=== PATIENT | female | born 1995 | race Caucasian/White ===

== ENCOUNTER → 2024-02-25 16:34 | Outpatient (REF) | payer BC, SELFPAY | LOC: WDC 16:34 | PROVIDERS: ATTENDING PHYSICIAN Obstetrics & Gynecology | DX: Z12.31 Encounter for screening mammogram for malignant neoplasm of breast (principal); Z80.3 Family history of malignant neoplasm of breast | CPT/HCPCS: 77063; 77067 ==

== ENCOUNTER → 2024-07-04 11:01 | Outpatient (REF) | payer BC, SELFPAY | LOC: WDC 11:01 | PROVIDERS: ATTENDING PHYSICIAN Obstetrics & Gynecology | DX: R92.2 Inconclusive mammogram (principal); Z80.3 Family history of malignant neoplasm of breast | CPT/HCPCS: 76641 ==

== ENCOUNTER → 2024-09-23 14:55 | Outpatient (REF) | payer OTHER, SELFPAY | LOC: HWRCS 14:55 | PROVIDERS: ATTENDING PHYSICIAN Internal Medicine Cardiovascular Disease; FAMILY PHYSICIAN Physician Assistant | DX: R00.2 Palpitations (principal); R42 Dizziness and giddiness | CPT/HCPCS: 93306 ==

== ENCOUNTER → 2024-10-05 07:40 | Outpatient (REF) | payer OTHER, SELFPAY | LOC: PAVMRI 07:40 | PROVIDERS: ATTENDING PHYSICIAN Nurse Practitioner Family; FAMILY PHYSICIAN Family Medicine | DX: R41.89 Other symptoms and signs involving cognitive functions and awareness (principal); R42 Dizziness and giddiness; M54.2 Cervicalgia | CPT/HCPCS: 70553; A9575 ==

== ENCOUNTER → 2025-01-25 08:26 | Outpatient (REF) | payer OTHER, SELFPAY | LOC: WDC 08:26 | PROVIDERS: ATTENDING PHYSICIAN Obstetrics & Gynecology; FAMILY PHYSICIAN Nurse Practitioner Family | DX: R92.8 Other abnormal and inconclusive findings on diagnostic imaging of breast (principal) | CPT/HCPCS: 76642 ==

== ENCOUNTER 2025-01-26 08:55 | Emergency (ER) | payer OTHER, SELFPAY ==
[2025-01-26 08:57] VITALS: BP 139/96
[2025-01-26 09:11] VITALS: BMI 24.9
[2025-01-26] MEDS: VALIUM 5 MG PO (09:24)
[2025-01-26] MEDS: TORADOL 30 MG IM (09:24)
--- NOTE | 2025-01-26 10:00 | ED.GENMED ---
History of Present Illness
General
Chief Complaint: Back Pain
Time Seen by Provider: 01/26/25 09:09
History of Present Illness
History of Present Illness:
29-year-old female presents for evaluation of low back pain that occurred while attempting to lift. Pain is worsened since that time. She is able to ambulate with discomfort. Denies any lower extremity paresthesias or radiculopathy. No loss
of bladder or bowel function.
Past History
Past History
ED Past Medical History: Psychiatric (Anxiety)
ED Past Surgical History: None
Social History
Tobacco: Non-smoker
Review of Systems
Review of Systems
Allergies reviewed?: Yes
All Other Systems: ROS reviewed and negative except as documented in HPI and ROS
Phy Exam
Physical Exam
Physical Exam:
GEN: Well appearing, NAD, WDWN
HEENT: Oral mucosa moist, no scleral icterus
Cardiac: Regular rate
Lung: No respiratory distress, no tachypnea
MSK: No gross deformity or injuries. No reproducible tenderness to the midline lumbar spine or paraspinous musculature however paraspinous spasm is noted. Bilateral lower extremity range of motion is normal
Skin: Good color, no pallor or jaundice, no rashes
Neuro: AO x3, moves all extremities freely, bilateral lower extremity strength is normal in all tomas and patellar reflexes are 2+ bilaterally
Psych: Calm, cooperative
Course
Orders/Labs/Results
Orders:
Orders
01/26/25 09:15
Diazepam [Valium] 5 mg PO NOW STA
Ketorolac [Toradol] 30 mg IM NOW STA
Vital Signs
Initial and Last Documented VS:
Initial Vital Signs
Temp Pulse Resp BP Pulse Ox
98.7 F 83 16 139/96 100
01/26/25 08:57 01/26/25 08:57 01/26/25 08:57 01/26/25 08:57 01/26/25 08:57
Last Documented Vital Signs
Temp Pulse Resp BP Pulse Ox
98.7 F 68 16 117/78 100
01/26/25 08:57 01/26/25 10:06 01/26/25 10:06 01/26/25 10:06 01/26/25 08:57
MDM/Problems Addressed
MDM/Problems Addressed:
No indication for imaging for nontraumatic back pain without radiculopathy. Discussed supportive care
*Critical Care Note
Total Time (30-74mins, 75-104mins- exclusive of procedures): Not Applicable
ED Attending Note
-
Portions of this chart may have been created with voice recognition software.� Occasional wrong word or��sound alike� substitutions may have occurred due to the inherent limitations of voice recognition software.
Discharge Plan
Departure
Patient Disposition: Home (Routine Discharge)
Date of Disposition: 01/26/25
Time of Disposition: 10:01
Patient with high blood pressure during this ER visit?: No
Discharge Problem:
Lumbar spine strain
Instructions: Low Back Pain (DC)
Prescriptions:
New
celecoxib [Celebrex] 200 mg capsule
200 mg PO BID Qty: 20 0RF
methocarbamol 750 mg tablet
750 - 1,500 mg PO Q8H PRN (Reason: pain) Qty: 20 0RF
Referrals:
Ema Marion CRNP [Family Provider] -
Activity Restrictions/Additional Instructions:
Gentle stretches each day
Alternate heat and ice
Expect to be very stiff/sore in the mornings, this should improve as you are up and moving throughout the day
Consider physical therapy or chiropractic treatments if symptoms do not improve in 3-5 days
Interventions
Interventions:
*Risk Screen - Suicide Last Done: 01/26/25 08:57
*General Assessment Last Done: 01/26/25 08:57
*Neglect/Abuse Screening Last Done: 01/26/25 08:57
*ED- Fall Risk Assessment Last Done: 01/26/25 09:10
*ED COVID-19 Vaccine History Last Done: 01/26/25 08:57
*Nursing Disposition Last Done: 01/26/25 10:21
ED-Musculoskeletal Assessment Last Done: 01/26/25 09:11
Discharge Date and Time
Discharge Date/Time: 01/26/25 10:21
Print Language: [place]
[2025-01-26 10:06] VITALS: BP 117/78
== END 2025-01-26 10:21 | disposition home or self-care (01) ==
LOC: EMR 08:55
PROVIDERS: EMERGENCY PHYSICIAN Emergency Medicine; FAMILY PHYSICIAN Nurse Practitioner Family
DX: S39.012A Strain of muscle, fascia and tendon of lower back, initial encounter (principal); X50.9XXA Other and unspecified overexertion or strenuous movements or postures, initial encounter; F41.9 Anxiety disorder, unspecified
CPT/HCPCS: 99282; 96372

== ENCOUNTER → 2025-07-05 08:01 | Outpatient (REF) | payer OTHER, SELFPAY | LOC: WDC 08:01 | PROVIDERS: ATTENDING PHYSICIAN Obstetrics & Gynecology | DX: N60.19 Diffuse cystic mastopathy of unspecified breast (principal) | CPT/HCPCS: 76641 ==

== ENCOUNTER 2025-08-01 11:10 | Emergency (ER) | payer OTHER, SELFPAY ==
[2025-08-01 11:16] VITALS: BP 149/96
[2025-08-01 12:35] VITALS: BP 140/90
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
[2025-08-01 13:00] VITALS: BP 136/91
[2025-08-01 13:10] LABS: Hematocrit 38.5 % (37.0-47.0); Hemoglobin 13.4 g/dL (12.0-16.0); Mean Corp Hgb Conc. 34.8 g/dL (33.0-37.0); Mean Corpuscular Volume 87.1 fL (81.0-99.0); Nucleated Red Blood Cells % 0 %; Platelet Count 252 10^3/uL (130-400); Red Cell Dist. Width 11.5 % (11.5-14.5)
[2025-08-01 13:22] LABS: ALT (SGPT) 18 U/L (0-35); AST (SGOT) 20 U/L (14-36); Albumin 4.8 g/dl (3.5-5.0); Alkaline Phosphatase 39 U/L (38-126); Blood Urea Nitrogen 15 mg/dl (7-17); Calcium 9.3 mg/dl (8.4-10.2); Carbon Dioxide 26 mmol/L (22-30); Chloride 102 mmol/L (98-107); Glucose 104 mg/dl (70-99); Potassium 3.7 mmol/L (3.5-5.1); Sodium 134 mmol/L (135-145); Total Protein 7.3 g/dl (6.3-8.2); eGFR > 60.00
[2025-08-01 14:00] VITALS: BP 130/80
[2025-08-01] MEDS: NSS 1000 IV (14:09)
== END 2025-08-01 15:06 | disposition home or self-care (01) ==
LOC: EMR 11:10
PROVIDERS: Nurse Practitioner; EMERGENCY PHYSICIAN Emergency Medicine; FAMILY PHYSICIAN Nurse Practitioner Family
DX: R42 Dizziness and giddiness (principal); R03.0 Elevated blood-pressure reading, without diagnosis of hypertension; F41.9 Anxiety disorder, unspecified
CPT/HCPCS: 99284; 96360; 70496; 70498; 80053; 85025; 93005; Q9967